=== PATIENT | male | born 1960 | race African-American/Black ===

== ENCOUNTER 2017-06-11 20:57 | Emergency (ER) | payer BC ==
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
[2017-06-11 21:34] VITALS: BP 142/91; PULSE 92; TEMP 97.8; BMI 23.1
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
== END 2017-06-11 22:31 | disposition home or self-care (01) ==
LOC: JERFT 20:57
DX: S00.03XA Contusion of scalp, initial encounter (principal); V78.1XXA Passenger on bus injured in noncollision transport accident in nontraffic accident, initial encounter; Y93.89 Activity, other specified; Y92.414 Local residential or business street as the place of occurrence of the external cause; Y99.8 Other external cause status
CPT/HCPCS: 90853; 99281-25

== ENCOUNTER 2017-11-24 05:43 | Emergency (ER) | payer BC ==
[2017-11-24 06:14] VITALS: BP 154/98; PULSE 89; TEMP 98.8; BMI 23.7
--- NOTE | 2017-11-24 06:28 | PDOC ---
History of Present Illness - General Chief Complaint: Head/Neck problem Stated Complaint: NECK PAIN Time Seen by Provider: 11/24/17 06:15 Past History - Past Medical History Allergies/Adverse Reactions: Allergies Allergy/AdvReac Type Severity Reaction Status Date / Time No Known Allergies Allergy Verified 11/24/17 06:15 Home Medications: Ambulatory Orders Cyclobenzaprine HCl [Flexeril -] 10 mg PO HS #10 tablet 11/24/17 Ibuprofen 800 mg PO TID #30 tablet 11/24/17 Anemia: No Asthma: No Cancer: No Cardiac Disorders: No CVA: No COPD: No CHF: No Dementia: No Diabetes: No GI Disorders: No Disorders: No HTN: No Hypercholesterolemia: No Liver Disease: No Seizures: No Thyroid Disease: No - Suicide/Smoking/Psychosocial Hx Smoking Status: Yes Smoking History: Current every day smoker Have you smoked in the past 12 months: Yes Number of Cigarettes Smoked Daily: 3 Information on smoking cessation initiated: No 'Breaking Loose' booklet given: 02/08/13 Hx Alcohol Use: Yes (Occasional) Drug/Substance Use Hx: No Substance Use Type: None Hx Substance Use Treatment: No *Physical Exam - Vital Signs Last Vital Signs Temp Pulse Resp BP Pulse Ox 98.8 F 89 18 154/98 98 11/24/17 05:50 11/24/17 05:50 11/24/17 05:50 11/24/17 05:50 11/24/17 05:50 *DC/Admit/Observation/Transfer Diagnosis at time of Disposition: Torticollis - Discharge Dispostion Disposition: HOME Condition at time of disposition: Fair Decision to Admit order: No - Referrals Referrals: Juan Luis French MD [Staff Physician] - - Patient Instructions Printed Discharge Instructions: DI for Neck Pain Additional Instructions: You have neck pain from a muscle spasm. Please take the flexeril before bed tonight. Do not drive after taking this medication as it may make you sleepy. Do not mix with alcohol You may take 800mg of Motrin starting tomorrow every 8 hours as needed for pain. Heating packs to the area may help Follow up with your doctor this week. Return to the ED if you have worsening pain, fevers, headaches or if you have any changes in your symptoms. - Post Discharge Activity Forms/Work/School Notes: Back to Work
[2017-11-24] MEDS ORDERED: KETOROLAC TROMETHAMINE 60 MG/2 ML VIAL IM ONE (06:29)
--- NOTE | 2017-11-24 06:36 | PDOC ---
*Physical Exam - Vital Signs Last Vital Signs Temp Pulse Resp BP Pulse Ox 98.8 F 89 18 154/98 98 11/24/17 05:50 11/24/17 05:50 11/24/17 05:50 11/24/17 05:50 11/24/17 05:50 ED Treatment Course - Medications Given in the ED: ED Medications Discontinued Medications Generic Name Dose Route Start Last Admin Trade Name Santo PRN Reason Stop Dose Admin Ketorolac Tromethamine 60 mg 11/24/17 06:29 11/24/17 06:34 Toradol Injection - IM 11/24/17 06:30 60 mg ONCE ONE Administration Medical Decision Making - Medical Decision Making 11/24/17 06:36 Case discussed with POONAM Lowe. Plan as per Chrissy. *DC/Admit/Observation/Transfer Diagnosis at time of Disposition: Torticollis - Discharge Dispostion Disposition: HOME Condition at time of disposition: Fair - Prescriptions Prescriptions: Cyclobenzaprine HCl [Flexeril -] 10 mg PO HS #10 tablet Ibuprofen 800 mg PO TID #30 tablet - Referrals Referrals: Juan Luis French MD [Staff Physician] - - Patient Instructions Printed Discharge Instructions: DI for Neck Pain Additional Instructions: You have neck pain from a muscle spasm. Please take the flexeril before bed tonight. Do not drive after taking this medication as it may make you sleepy. Do not mix with alcohol You may take 800mg of Motrin starting tomorrow every 8 hours as needed for pain. Heating packs to the area may help Follow up with your doctor this week. Return to the ED if you have worsening pain, fevers, headaches or if you have any changes in your symptoms. - Post Discharge Activity Forms/Work/School Notes: Back to Work
[2017-11-24] MEDS ORDERED: KETOROLAC TROMETHAMINE 60 MG/2 ML VIAL ONE (06:38)
== END 2017-11-24 06:37 | disposition home or self-care (01) ==
LOC: JER 05:43
PROC: 3E0233Z Introduction of Anti-inflammatory into Muscle, Percutaneous Approach (ICD-10-PCS; principal; 2017-11-24)
DX: M43.6 Torticollis (principal); F17.210 Nicotine dependence, cigarettes, uncomplicated
CPT/HCPCS: 99281-25

== ENCOUNTER 2018-09-24 22:37 | Emergency (ER) | payer BC | END 2018-09-25 03:00 | disposition home or self-care (01) | LOC: JER 09-25 03:00 ==

== ENCOUNTER 2022-03-29 01:22 | Emergency (ER) | payer BC ==
[2022-03-29 01:34] VITALS: RESP 20; BMI 28.2
[2022-03-29] MEDS ORDERED: ACETAMINOPHEN 325 MG TABLET (FP) PO ONE (02:05)
[2022-03-29] MEDS ORDERED: ACETAMINOPHEN 325 MG TABLET (FP) ONE (02:09)
[2022-03-29] MEDS ORDERED: FLUTICASONE PROP 0.05% 16 GM NASAL SPRAY NS ONE (03:16)
[2022-03-29] MEDS ORDERED: DEXAMETHASONE SOD PHOSPHATE 10 MG/1 ML VIAL IM ONE (03:44)
[2022-03-29] MEDS ORDERED: ALBUTEROL SO4 2.5/IPRATROPIUM 0.5 INH SOL 3 ML VIAL.NEB. NEB ONE ×2 (03:58→04:17)
[2022-03-29] MEDS ORDERED: DEXAMETHASONE SOD PHOSPHATE 10 MG/1 ML VIAL ONE (03:58)
[2022-03-29] MEDS: ALBUTEROL SO4 2.5/IPRATROPIUM 0.5 INH SOL 3 ML VIAL.NEB. NEB SCH ×4 (03:59→04:30)
[2022-03-29 04:38] VITALS: BP 124/73; PULSE 106; TEMP 97.3
== END 2022-03-29 05:03 | disposition home or self-care (01) ==
LOC: JER 01:22
PROC: 3E0F7GC Introduction of Other Therapeutic Substance into Respiratory Tract, Via Natural or Artificial Opening (ICD-10-PCS; principal; 2022-03-29)
PROC: 3E0233Z Introduction of Anti-inflammatory into Muscle, Percutaneous Approach (ICD-10-PCS; 2022-03-29)
DX: J09.X2 Influenza due to identified novel influenza A virus with other respiratory manifestations (principal); R05.1 Acute cough; R50.9 Fever, unspecified; R51.9 Headache, unspecified
CPT/HCPCS: 0241U-QW; 71046-TC-FY; 99284-25; J1100

== ENCOUNTER 2022-08-08 04:29 | Day surgery (SDC) | payer BC ==
[2022-08-08 10:20] VITALS: BMI 28.2
[2022-08-08 12:41] VITALS: TEMP 97.1
[2022-08-08 13:01] VITALS: BP 130/98; PULSE 80; RESP 19
== END 2022-08-08 13:03 | disposition home or self-care (01) ==
LOC: JASU-ENDO 04:29
PROVIDERS: ATTEND Internal Medicine Gastroenterology
PROC: 0DBN8ZX Excision of Sigmoid Colon, Via Natural or Artificial Opening Endoscopic, Diagnostic (ICD-10-PCS; principal; 2022-08-08 11:15)
DX: Z12.11 Encounter for screening for malignant neoplasm of colon (principal); K63.5 Polyp of colon; K57.30 Diverticulosis of large intestine without perforation or abscess without bleeding; K64.8 Other hemorrhoids
CPT/HCPCS: 88305-TC

== ENCOUNTER 2023-11-27 05:12 | Day surgery (SDC) | payer BC ==
[2023-11-26 11:52] VITALS: BMI 28.2
[2023-11-27 08:59] VITALS: BP 142/87; PULSE 62; RESP 15; TEMP 98
== END 2023-11-27 09:00 | disposition home or self-care (01) ==
LOC: JASU-ENDO 05:12
PROVIDERS: ATTEND Internal Medicine Gastroenterology
PROC: 0DB68ZX Excision of Stomach, Via Natural or Artificial Opening Endoscopic, Diagnostic (ICD-10-PCS; 2023-11-27)
PROC: 0DB58ZX Excision of Esophagus, Via Natural or Artificial Opening Endoscopic, Diagnostic (ICD-10-PCS; principal; 2023-11-27 08:00)
DX: K22.2 Esophageal obstruction (principal); K22.5 Diverticulum of esophagus, acquired; K21.00 Gastro-esophageal reflux disease with esophagitis, without bleeding; K29.50 Unspecified chronic gastritis without bleeding
CPT/HCPCS: 88305-TC; 88312-TC; 88342-TC